=== PATIENT | female | born 1990 | race Caucasian/White ===

== ENCOUNTER 2016-05-16 17:11 | Emergency (ER) | payer OTHER | END 2016-05-16 18:52 | disposition home or self-care (01) | LOC: ER1 17:11 | DX: J06.9 Acute upper respiratory infection, unspecified (principal); F17.210 Nicotine dependence, cigarettes, uncomplicated; Z90.49 Acquired absence of other specified parts of digestive tract | CPT/HCPCS: 87081; 87880; 99283 ==

== ENCOUNTER 2020-04-26 16:31 | Emergency (ER) | payer OTHER ==
[~2020-04-26 16:31] MED LIST: BACTRIM DS TAB1 EACH PO; BACTROBAN OINT22 GM EXT; BENTYL 10MG CAP10 MG PO; FLAGYL500 MG PO; IBUPROFEN800 MG PO; KEFLEX CAP 500500 MG PO; MACROBID 100 M100 MG PO; MACRODANTIN100 MG PO; NAPROSYN500 MG PO; NORCO 5-325 TA1 EACH PO; PHENERGAN 25 MG25 M1 PO; SEROQUEL50 MG PO; VANCOMYCIN HCL125 MG PO; ZOFRAN 4 MG TAB4 MG PO; ZOFRAN4 MG PO
[2020-04-26 20:30] LABS: HEMOGLOBIN 15.2 gm/dl (12.3-15.3); RED BLOOD COUNT 4.54 M/UL (4.00-5.10); WHITE BLOOD COUNT 11.9 K/UL (4.5-11.0)
[2020-04-26 20:48] LABS: BUN/CREATININE RATIO 20 (0-10)
[2020-04-28] MEDS ORDERED: FLAGYL500 MG PO (19:03)
[2020-04-28] MEDS ORDERED: MOBIC15 MG PO (19:03)
[2020-04-28] MEDS ORDERED: ONDANSETRON ODT4 MG SL (19:03)
== END 2020-04-27 00:42 | disposition left against medical advice (07) ==
LOC: ER1 16:31
PROVIDERS: Physician Assistant
DX: R19.7 Diarrhea, unspecified (principal); R10.9 Unspecified abdominal pain; F17.200 Nicotine dependence, unspecified, uncomplicated; Z20.822 Contact with and (suspected) exposure to COVID-19; Z90.49 Acquired absence of other specified parts of digestive tract
CPT/HCPCS: 0240U; 36415; 80053; 81001; 84703; 85025; 96374; 99284; J1885; Q9967

== ENCOUNTER 2020-04-28 11:25 | Emergency (ER) | payer OTHER ==
[2020-04-28 15:16] LABS: HEMOGLOBIN 13.8 gm/dl (12.3-15.3); RED BLOOD COUNT 4.16 M/UL (4.00-5.10)
[2020-04-28 15:21] LABS: WHITE BLOOD COUNT 17.2 K/UL (4.5-11.0)
[2020-04-28 15:39] LABS: BUN/CREATININE RATIO 21 (0-10)
[2020-04-28] MEDS ORDERED: MOBIC15 MG PO (19:03)
[2020-04-28] MEDS ORDERED: ONDANSETRON ODT4 MG SL (19:03)
[2020-04-28] MEDS ORDERED: FLAGYL500 MG PO (19:03)
== END 2020-04-28 19:40 | disposition home or self-care (01) ==
LOC: ER1 11:25
PROVIDERS: Physician Assistant
DX: R10.84 Generalized abdominal pain (principal); R19.7 Diarrhea, unspecified; I50.9 Heart failure, unspecified; J45.909 Unspecified asthma, uncomplicated; F17.210 Nicotine dependence, cigarettes, uncomplicated; Z90.49 Acquired absence of other specified parts of digestive tract; Z79.899 Other long term (current) drug therapy
CPT/HCPCS: 36415; 80053; 83690; 84703; 85025; 96374; 96375; 99284; J1885; J2270; J2550; Q9967

== ENCOUNTER 2021-03-10 16:53 | Emergency (ER) | payer OTHER ==
[~2021-03-10 16:53] MED LIST changes: +MOBIC15 MG PO; +ONDANSETRON ODT4 MG SL
== END 2021-03-10 18:51 | disposition home or self-care (01) ==
LOC: ER1 16:53
DX: S01.411A Laceration without foreign body of right cheek and temporomandibular area, initial encounter (principal); Z23 Encounter for immunization; W22.8XXA Striking against or struck by other objects, initial encounter; Y92.009 Unspecified place in unspecified non-institutional (private) residence as the place of occurrence of the external cause
CPT/HCPCS: 12011; 90471; 90714; 99283